=== PATIENT | female | born 1930 | race Caucasian/White ===

== ENCOUNTER 2017-01-05 10:30 | Emergency (ER) | payer MEDICARE ==
[2017-01-05 11:02] LABS: CHLORIDE,CL 106 mEq/L (98-106); SODIUM,NA 141 mEq/L (136-145)
--- NOTE | 2017-01-05 11:55 | EDM.PDOC ---
ED HPI GENERAL MEDICAL PROBLEM - General Chief Complaint: General Stated Complaint: "she is not herself" Time Seen by Provider: 01/05/17 11:15 Source of Information: Reports: Family History Limitations: Reports: Altered Mental Status - History of Present Illness INITIAL COMMENTS - FREE TEXT/NARRATIVE: Pt was brought here by EMS when was concerned that she wouldn't wake up lie she normally does. SHe does have severe Alzheimer and he cares for her. He does have difficulty getting morning meds into her but the evening ones are better but will still find that she spits them out at times. She doesn't answer anything anymore and he doesn't think she nows him. The residential plan is to fly to [place] January 17 where her daughter lives and will put her into a skilled nursing as it is getting difficult for him to care for her by himself. This morning when she didn't get up like normal she was having episodes of gagging that was not normal for her. He had given her a tramadol last night as she was showing signs of her back hurting. That was the first one that she had taken in over 2 weeks. She tends to sleep up to 16 hours a day. - Related Data Allergies Allergy/AdvReac Type Severity Reaction Status Date / Time Penicillins Allergy Cannot Verified 01/05/17 10:42 Remember Home Meds: Home Meds Levothyroxine Sodium [Levo-T] 50 mcg PO BEDTIME 01/05/17 [History] Lisinopril [Lisinopril] 2.5 mg PO BEDTIME 01/05/17 [History] Memantine HCl [Namenda Xr] 28 mg PO DAILY 01/05/17 [History] Pantoprazole Sodium [Pantoprazole Sodium] 40 mg PO DAILY 01/05/17 [History] traMADol HCl [Ultram] 50 mg PO Q12H PRN 01/05/17 [History] Past Medical History Cardiovascular History: Reports: Hypertension Gastrointestinal History: Reports: GERD Musculoskeletal History: Reports: Back Pain, Chronic, Osteoarthritis, Osteoporosis Psychiatric History: Reports: Dementia Endocrine/Metabolic History: Reports: Hypothyroidism - Past Surgical History GI Surgical History: Reports: Cholecystectomy Social & Family History - Tobacco Use Smoking Status *Q: Never Smoker - Recreational Drug Use Recreational Drug Use: No - Living Situation & Occupation Living situation: Reports: , with Spouse Occupation: Retired ED ROS GENERAL - Review of Systems Review Of Systems: See Below Constitutional: Denies: Fever, Chills HEENT: Reports: No Symptoms Respiratory: Reports: No Symptoms Cardiovascular: Reports: No Symptoms GI/Abdominal: Reports: Other (gagging) : Reports: No Symptoms Musculoskeletal: Reports: No Symptoms Skin: Reports: No Symptoms Neurological: Reports: Confusion ED EXAM, GENERAL - Physical Exam Exam: See Below Exam Limited By: No Limitations General Appearance: Alert, Other (does not answer any questions. Will smile at questions.) Ears: Normal External Exam, Normal Canal, Normal TMs Nose: Normal Inspection Throat/Mouth: Normal Inspection, Normal Oropharynx Head: Atraumatic Neck: Normal Inspection, Supple Respiratory/Chest: No Respiratory Distress, Lungs Clear, Normal Breath Sounds Cardiovascular: Regular Rate, Rhythm, No Edema GI/Abdominal: Normal Bowel Sounds, Soft, Non-Tender, No Organomegaly Extremities: Normal Inspection, No Pedal Edema Neurological: Alert, Other (no verbal response) Skin Exam: Warm, Dry Course - Vital Signs Last Recorded V/S: Last Vital Signs Temp 96.1 F 01/05/17 10:31 Pulse 68 01/05/17 10:31 Resp 20 01/05/17 10:31 BP 178/79 H 01/05/17 10:31 Pulse Ox 95 01/05/17 10:31 - Orders/Labs/Meds Orders: Active Orders 24 hr Category Date Time Status Chest 1V Frontal [CR] Stat Exams 01/05/17 10:38 Ordered Labs: Laboratory Tests 01/05/17 01/05/17 01/05/17 Range/Units 10:49 10:49 11:20 WBC 3.5 L (5.0-10.0) 10^3/uL RBC 3.49 L (4.00-5.50) 10^6/uL Hgb 11.6 L (12.0-16.0) g/dL Hct 34.0 L (37.0-47.0) % MCV 97.4 H (82.0-94.0) fL MCH 33.2 H (27.0-32.0) pg MCHC 34.1 (33.0-38.0) g/dL RDW Coeff of [place] 12.3 (11.0-15.0) % Plt Count 172 (150-400) 10^3/uL Neut % (Auto) 64.9 (35-85) % Lymph % (Auto) 27.2 (10-55) % [place] % (Auto) 6.2 (0-16) % Eos % (Auto) 1.1 (0-5) % Baso % (Auto) 0.6 (0-3) % Neut # (Auto) 2.29 (1.80-7.00) 10^3/uL Lymph # (Auto) 0.96 L (1.00-4.80) 10^3/uL [place] # (Auto) 0.22 (0.00-0.80) 10^3/uL Eos # (Auto) 0.04 (0.00-0.45) 10^3/uL Baso # (Auto) 0.02 10^3/uL Sodium 141 (136-145) mEq/L Potassium 3.8 (3.5-5.0) mEq/L Chloride 106 (98-106) mEq/L Carbon Dioxide 26 (21-32) mmol/L BUN 20 H (7-18) mg/dL Creatinine 0.8 (0.6-1.0) mg/dL Est Cr Clr Drug Dosing 36.55 mL/min Estimated GFR (MDRD) > 60 (>=60) mL/min Glucose 132 H D (75-99) mg/dL Calcium 9.1 (8.4-10.1) mg/dL Total Bilirubin 0.5 (0.0-1.0) mg/dL AST 16 (15-37) U/L ALT 21 (12-78) U/L Alkaline Phosphatase 59 (46-116) U/L C-Reactive Protein < 0.2 L (0.2-0.8) mg/dL Total Protein 6.2 L (6.4-8.2) g/dL Albumin 3.5 (3.4-5.0) g/dL Urine Color Yellow (YELLOW) Urine Appearance Clear (CLEAR) Urine pH 5.5 (4.5-8.0) Ur Specific [place] 1.025 H (1.003-1.020) Urine Protein Trace H (NEGATIVE) mg/dL Urine Glucose (UA) 100 H (NEGATIVE) mg/dL Urine Ketones 15 H (NEGATIVE) mg/dL Urine Occult Blood Trace-intact H (NEGATIVE) Urine Nitrite Negative (NEGATIVE) Urine Bilirubin Small H (NEGATIVE) Urine Urobilinogen 2.0 H (0.2-1.0) EU/dL Ur Leukocyte Esterase Negative (NEGATIVE) Urine RBC 0-5 (0-5) /HPF Urine WBC Not seen (0-5) /HPF Urine Mucus Occasional H (NOT SEEN) /HPF Departure - Departure Time of Disposition: 11:55 Disposition: Home, Self-Care 01 Condition: Poor Clinical Impression: Alzheimer's dementia without behavioral disturbance - Discharge Information Referrals: Tiffanie Hussein PA-C [Primary Care Provider] - Forms: ED Department Discharge Additional Instructions: stop the namenda and pantoprazole. Continue care as previously Rechec if any new concerns. - Problem List & Annotations (1) Alzheimer's dementia without behavioral disturbance SNOMED Code(s): 29518083 Code(s): G30.9 - ALZHEIMER'S DISEASE, UNSPECIFIED; F02.80 - DEMENTIA IN OTH DISEASES CLASSD ELSWHR W/O BEHAVRL DISTURB Status: Acute Priority: High Current Visit: Yes Qualifiers: Alzheimer's disease onset: late-onset Qualified Code(s): G30.1 - Alzheimer' s disease with late onset; F02.80 - Dementia in other diseases classified elsewhere without behavioral disturbance; F02.80 - Dementia in other diseases classified elsewhere without behavioral disturbance; F02.80 - Dementia in other diseases classified elsewhere without behavioral disturbance - Problem List Review Problem List Initiated/Reviewed/Updated: Yes - My Orders Last 24 Hours: My Active Orders 01/05/17 10:38 Chest 1V Frontal [CR] Stat - Assessment/Plan Last 24 Hours: My Active Orders 01/05/17 10:38 Chest 1V Frontal [CR] Stat
== END 2017-01-05 12:02 | disposition home or self-care (01) ==
LOC: CC.ED 10:30
DX: G30.9 Alzheimer's disease, unspecified (principal); F02.80 Dementia in other diseases classified elsewhere, unspecified severity, without behavioral disturbance, psychotic disturbance, mood disturbance, and anxiety; I10 Essential (primary) hypertension; K21.9 Gastro-esophageal reflux disease without esophagitis; E03.9 Hypothyroidism, unspecified; Z79.899 Other long term (current) drug therapy; Z88.0 Allergy status to penicillin
CPT/HCPCS: 36415; 51701; 71010; 80053; 81001; 85025; 86140; 93005; 93010; 99284

== ENCOUNTER 2017-01-15 15:40 | Inpatient (IN) | payer MEDICARE ==
[2017-01-15] MEDS ORDERED: Ondansetron 4 MG/2 ML SDV IVPUSH STA (15:55)
[2017-01-15] MEDS ORDERED: Morphine 2 MG/ML Syringe IVPUSH ONE (15:55)
[2017-01-15] MEDS ORDERED: Diphtheria,Pertussis(Acell),Tetanus Vaccine 0.5 ML Syringe IM ONE (15:55)
[2017-01-15] MEDS ORDERED: Sodium Chloride 0.9% 500 ML IV SCH (16:00)
--- NOTE | 2017-01-15 16:01 | EDM.PDOC ---
ED HPI GENERAL MEDICAL PROBLEM - General Chief Complaint: General Stated Complaint: LEFT HIP PAIN Time Seen by Provider: 01/15/17 15:53 Source of Information: Reports: Patient, EMS, Family, RN History Limitations: Reports: Altered Mental Status (Severe Dementia. Nonverbal. ) - History of Present Illness INITIAL COMMENTS - FREE TEXT/NARRATIVE: This patient is an 86 year old female that presents to the ER. Patient has severe dementia and is nonverbal. The patient is accompanied by her . The reports that she was in bed and he usually helps her out of bed. He reports that today she tried getting up out of bed on her own and fell. He did not see her fall, but did hear her. He reports that their son came over and helped him put her back in bed. He reports that she has not been able to get out of bed all day. He reports that she has not urinated that much today if at all. He reports that they are scheduled to fly to [place] on January [address] her in [facility]. He reports the patient is acting how she normally acts mentally and neurologically. Onset: Today Onset Date: 01/15/17 Onset Time: 07:30 Location: Reports: Upper Extremity, Left, Lower Extremity, Left Severity: Moderate Improves with: Reports: Immobilization Worsens with: Reports: Movement Associated Symptoms: Reports: Other (decreased urine today). Denies: Confusion , Chest Pain, Cough, cough w sputum, Diaphoresis, Fever/Chills, Headaches, Loss of Appetite, Malaise, Nausea/Vomiting, Rash, Seizure, Shortness of Breath, Syncope, Weakness - Related Data Allergies Allergy/AdvReac Type Severity Reaction Status Date / Time Penicillins Allergy Cannot Verified 01/05/17 10:42 Remember Home Meds: Home Meds Levothyroxine Sodium [Levo-T] 50 mcg PO BEDTIME 01/05/17 [History] Lisinopril [Lisinopril] 2.5 mg PO BEDTIME 01/05/17 [History] Memantine HCl [Namenda Xr] 28 mg PO DAILY 01/05/17 [History] Pantoprazole Sodium [Pantoprazole Sodium] 40 mg PO DAILY 01/05/17 [History] traMADol HCl [Ultram] 50 mg PO Q12H PRN 01/05/17 [History] Past Medical History Cardiovascular History: Reports: Hypertension Gastrointestinal History: Reports: GERD Musculoskeletal History: Reports: Back Pain, Chronic, Osteoarthritis, Osteoporosis Psychiatric History: Reports: Dementia Endocrine/Metabolic History: Reports: Hypothyroidism - Past Surgical History GI Surgical History: Reports: Cholecystectomy Social & Family History - Tobacco Use Smoking Status *Q: Never Smoker - Recreational Drug Use Recreational Drug Use: No - Living Situation & Occupation Living situation: Reports: , with Spouse Occupation: Retired ED ROS GENERAL - Review of Systems Review Of Systems: See Below Constitutional: Reports: No Symptoms HEENT: Reports: No Symptoms Respiratory: Reports: No Symptoms Cardiovascular: Reports: No Symptoms Endocrine: Reports: No Symptoms GI/Abdominal: Reports: No Symptoms : Reports: Other (decreased urination today) Musculoskeletal: Reports: Joint Pain (left hip pain. ) Skin: Reports: Wound (abrasion left elbow. ) Neurological: Reports: No Symptoms Psychiatric: Reports: No Symptoms Hematologic/Lymphatic: Reports: No Symptoms Immunologic: Reports: No Symptoms ED EXAM, GENERAL - Physical Exam Exam: See Below Exam Limited By: Altered Mental Status (Chronic Severe dementia. Nonverbal. Chronic no changes.) General Appearance: WD/WN, No Apparent Distress Eye Exam: Bilateral Eye: PERRL Ears: Normal External Exam, Normal Canal, Hearing Grossly Normal (follows me when I talk to her with eyes. ), Normal TMs Ear Exam: Bilateral Ear: Auricle Normal, Canal Normal, TM normal Nose: Normal Inspection, Normal Mucosa, No Blood Throat/Mouth: Normal Inspection, Normal Lips, Normal Gums, Normal Oropharynx, Normal Voice, No Airway Compromise Head: Atraumatic, Normocephalic Neck: Normal Inspection, Supple, Non-Tender, Full Range of Motion Respiratory/Chest: No Respiratory Distress, Lungs Clear, Normal Breath Sounds, No Accessory Muscle Use, Chest Non-Tender Cardiovascular: Normal Peripheral Pulses, Regular Rate, Rhythm, No Edema, No Gallop, No JVD, No Rub, Systolic Murmur (Grade 3. ) Peripheral Pulses: 2+: Radial (L), Radial (R), Posterior Tibial (L), Posterior Tibial (R), Dorsalis Pedis (L), Dorsalis Pedis (R) GI/Abdominal: Normal Bowel Sounds, Soft, Non-Tender, No Organomegaly, No Distention, No Abnormal Bruit, No Mass, Pelvis Stable (Female) Exam: Deferred Rectal (Female) Exam: Deferred Back Exam: Normal Inspection, Full Range of Motion. No: CVA Tenderness (L), CVA Tenderness (R), Decreased Range of Motion, Muscle Spasm, Paraspinal Tenderness, Vertebral Tenderness Extremities: No Pedal Edema, Normal Capillary Refill, Limited Range of Motion ( Left hip. ), Other (Left hip pain, tenderness. Decreased ROM due to pain. Obvious deformity with left lower extremity shortening and mild external rotation. Pulses +2, cap refill <2 sec. Sensation intact. Patient does have grimace with palpation and ROM. ) Neurological: Alert Psychiatric: Normal Mood, Flat Affect Skin Exam: Warm, Dry, Normal Color, No Rash, Other (skin tear left elbow. ) Lymphatic: No Adenopathy Course - Vital Signs Last Recorded V/S: Last Vital Signs Temp 98.1 F 01/15/17 15:52 Pulse 95 01/15/17 15:52 Resp 18 01/15/17 15:52 BP 133/65 01/15/17 15:52 Pulse Ox 95 01/15/17 15:52 - Orders/Labs/Meds Orders: Active Orders 24 hr Category Date Time Status Insert Urinary Catheter [OM.PC] Q24H Care 01/15/17 16:00 Ordered Urinary Catheter Assessment [RC] ASDIRECTED Care 01/15/17 15:55 Active Vaccines to be Administered [RC] PER UNIT ROUTINE Care 01/15/17 15:55 Active Chest 1V Frontal [CR] Stat Exams 01/15/17 15:53 Taken Head wo Cont [CT] Stat Exams 01/15/17 15:53 Taken Hip Min 2V or 3V w Pelvis Lt [CR] Stat Exams 01/15/17 15:53 Taken CULTURE URINE [RM] Stat Lab 01/15/17 16:57 Received Sodium Chloride 0.9% [Normal Saline] 500 ml Med 01/15/17 16:00 Active IV .BOLUS Medication Orders Sodium Chloride (Normal Saline) 500 mls @ 250 mls/hr IV .BOLUS AILYN Last Admin: 01/15/17 16:29 Dose: 250 mls/hr Labs: Laboratory Tests 01/15/17 01/15/17 01/15/17 Range/Units 16:25 16:25 16:25 WBC 11.0 H (5.0-10.0) 10^3/uL RBC 3.28 L (4.00-5.50) 10^6/uL Hgb 10.9 L (12.0-16.0) g/dL Hct 32.2 L (37.0-47.0) % MCV 98.2 H (82.0-94.0) fL MCH 33.2 H (27.0-32.0) pg MCHC 33.9 (33.0-38.0) g/dL RDW Coeff of [place]on 12.5 (11.0-15.0) % Plt Count 185 (150-400) 10^3/uL Add Manual Diff Yes Neutrophils % (Manual) 92 H (35-85) % Band Neutrophils % 2 (0-5) % Lymphocytes % (Manual) 3 L (21-55) % Monocytes % (Manual) 3 (2-12) % Absolute Neutrophils 10.34 H (1.80-7.00) 10^3/uL Lymphocytes # (Manual) 0.33 L (1.00-4.80) 10^3/uL Monocytes # (Manual) 0.33 (0.00-0.80) 10^3/uL PT 11.0 (9.7-12.3) SEC INR 1.02 (0.92-1.18) Sodium 141 (136-145) mEq/L Potassium 3.8 (3.5-5.0) mEq/L Chloride 107 H (98-106) mEq/L Carbon Dioxide 26 (21-32) mmol/L BUN 27 H (7-18) mg/dL Creatinine 0.9 (0.6-1.0) mg/dL Est Cr Clr Drug Dosing 28.77 mL/min Estimated GFR (MDRD) 59 L (>=60) mL/min Glucose 149 H (75-99) mg/dL Calcium 9.3 (8.4-10.1) mg/dL Total Bilirubin 0.7 (0.0-1.0) mg/dL AST 15 (15-37) U/L ALT 18 (12-78) U/L Alkaline Phosphatase 61 (46-116) U/L Total Protein 6.1 L (6.4-8.2) g/dL Albumin 3.5 (3.4-5.0) g/dL Urine Color (YELLOW) Urine Appearance (CLEAR) Urine pH (4.5-8.0) Ur Specific [place] (1.003-1.020) Urine Protein (NEGATIVE) mg/dL Urine Glucose (UA) (NEGATIVE) mg/dL Urine Ketones (NEGATIVE) mg/dL Urine Occult Blood (NEGATIVE) Urine Nitrite (NEGATIVE) Urine Bilirubin (NEGATIVE) Urine Urobilinogen (0.2-1.0) EU/dL Ur Leukocyte Esterase (NEGATIVE) Urine RBC (0-5) /HPF Urine WBC (0-5) /HPF Ur Squamous Epith Cells (NOT SEEN) /HPF Urine Bacteria (NOT SEEN) /HPF Urinalysis Comment 01/15/17 Range/Units 16:57 WBC (5.0-10.0) 10^3/uL RBC (4.00-5.50) 10^6/uL Hgb (12.0-16.0) g/dL Hct (37.0-47.0) % MCV (82.0-94.0) fL MCH (27.0-32.0) pg MCHC (33.0-38.0) g/dL RDW Coeff of [place] (11.0-15.0) % Plt Count (150-400) 10^3/uL Add Manual Diff Neutrophils % (Manual) (35-85) % Band Neutrophils % (0-5) % Lymphocytes % (Manual) (21-55) % Monocytes % (Manual) (2-12) % Absolute Neutrophils (1.80-7.00) 10^3/uL Lymphocytes # (Manual) (1.00-4.80) 10^3/uL Monocytes # (Manual) (0.00-0.80) 10^3/uL PT (9.7-12.3) SEC INR (0.92-1.18) Sodium (136-145) mEq/L Potassium (3.5-5.0) mEq/L Chloride (98-106) mEq/L Carbon Dioxide (21-32) mmol/L BUN (7-18) mg/dL Creatinine (0.6-1.0) mg/dL Est Cr Clr Drug Dosing mL/min Estimated GFR (MDRD) (>=60) mL/min Glucose (75-99) mg/dL Calcium (8.4-10.1) mg/dL Total Bilirubin (0.0-1.0) mg/dL AST (15-37) U/L ALT (12-78) U/L Alkaline Phosphatase (46-116) U/L Total Protein (6.4-8.2) g/dL Albumin (3.4-5.0) g/dL Urine Color Yellow (YELLOW) Urine Appearance Slightly cloudy (CLEAR) Urine pH 6.5 (4.5-8.0) Ur Specific [place] 1.025 H (1.003-1.020) Urine Protein Trace H (NEGATIVE) mg/dL Urine Glucose (UA) Negative (NEGATIVE) mg/dL Urine Ketones 40 H (NEGATIVE) mg/dL Urine Occult Blood Trace-intact H (NEGATIVE) Urine Nitrite Positive H (NEGATIVE) Urine Bilirubin Negative (NEGATIVE) Urine Urobilinogen 1.0 (0.2-1.0) EU/dL Ur Leukocyte Esterase Negative (NEGATIVE) Urine RBC 0-5 (0-5) /HPF Urine WBC 5-10 H (0-5) /HPF Ur Squamous Epith Cells Occasional H (NOT SEEN) /HPF Urine Bacteria Many H (NOT SEEN) /HPF Urinalysis Comment Meds: Medications Generic Name Dose Route Start Last Admin Trade Name Freq PRN Reason Stop Dose Admin Sodium Chloride 500 mls @ 250 mls/hr 01/15/17 16:00 01/15/17 16:29 Normal Saline IV 250 mls/hr .BOLUS AILYN Administration Discontinued Medications Generic Name Dose Route Start Last Admin Trade Name Jaydenq PRN Reason Stop Dose Admin Ceftriaxone Sodium 1 gm 01/15/17 18:37 Rocephin IVPUSH 01/15/17 18:38 ONETIME ONE Diphtheria/Tetanus/Acell Pertussis 0.5 ml 01/15/17 15:55 01/15/17 16:27 Adacel IM 01/15/17 15:56 0.5 ml .ONCE ONE Administration Morphine Sulfate 2 mg 01/15/17 15:55 01/15/17 16:28 Morphine IVPUSH 01/15/17 15:56 2 mg ONETIME ONE Administration Ondansetron HCl 4 mg 01/15/17 15:55 01/15/17 16:29 Zofran IVPUSH 01/15/17 15:56 4 mg NOW STA Administration - Radiology Interpretation Free Text/Narrative:: Discussed with radiologist about all images. CT Head: No bleed, no acute process. CXR: no pulmonary edema, no cardiomegaly, no infiltrates. Left hip: Left hip fx. CT Results Date: 01/15/17 CT Results Time: 16:40 - Re-Assessments/Exams Free Text/Narrative Re-Assessment/Exam: 01/15/17 17:17 I have spoken to the about the patient hip fracture. At this point he does not know if he wants her transferred or surgery. I have called [facility] and asked for orthopedic to look at her image and call me to discuss what intervention if any he would recommend. After I hear from him, then will talk to the again and hopefully he will have an answer at this point. After the fluids have been running, the has now made the decision that he does not want her to have fluids. I did also explain she has a UTI, he does not want any antibiotics. I have explained that not having UTI abx treatment may result in . He states "she has been very weak, she has dementia, and she is 86 years old, its just time to let her go." At this time I will just hold treatment. Her daughter is BRENT, who is in [place]. Once I hear from orthopedic, I will then call the daughter. 01/15/17 17:25 [facility] called. Orthopedic is in surgery. It will be over an hour. I will have radiology push images to [facility], then I will call there. 01/15/17 17:39 I have called and spoke to orthopedic at [facility], he will view image and call me back. 01/15/17 18:10 I have spoken to orthopedic Dr. Howie Avila. He reports that he would operate on this by placing a nail to help keep fracture stable. He said to help control pain. He did say he would not operate unless her UTI was treated due to going into surgery. I then spoke to Han the patients again. He does not want any treatments or surgery. I have now called and spoke to the POA. She is the daughter of the patient. Viviana Jovel. I have explained everything including risk verse benefits of surgery and treatment of UTI. She said she needs to think on it tonight before making a decision. She said at this point, do no treatment other than pain medication is okay if we feel she is in pain. I will admit patient and have her PCP see her tomorrow and contact the daughter [phone]. 01/15/17 18:35 Daughter Viviana has called me back. She wants the UTI treated. She also has more questions related to the surgery. I did now call Dr. Denise, he is going to call the daughter and talk to her about the surgery and call me back. 01/15/17 18:57 I spoke to surgeon again. He spoke with daughter. He said he thinks the daughter is leaning towards surgery, but wants to talk to a few more family members. The daughter will call me back when she decides. I will hold off on admission for a little while and wait for a decision from daughter. If I do not hear from her tonight, we will call her back. 01/15/17 20:24 I called and spoke to Viviana again. She reports she is struggling with a decision because patient does not want surgery done for her and the living will says no minor or major surgeries. She said that she will take the night to make a decision. She will touch base with PCP in the morning about decision for surgery. She does want UTI treated and pain medication as needed IV. But, does not want other treatment at this time. We will keep ward in place. I will admit patient. Departure - Departure Time of Disposition: 20:26 Disposition: Admitted As Inpatient 64 Condition: Fair Clinical Impression: UTI, Urinary tract infectious disease Closed left hip fracture Qualifiers: Encounter type: initial encounter Qualified Code(s): S72.002A - Fracture of unspecified part of neck of left femur, initial encounter for closed fracture - Discharge Information Referrals: Provider,Unknown [Primary Care Provider] - Forms: ED Department Discharge - My Orders Last 24 Hours: My Active Orders 01/15/17 15:53 Chest 1V Frontal [CR] Stat Head wo Cont [CT] Stat Hip Min 2V or 3V w Pelvis Lt [CR] Stat 01/15/17 15:55 Urinary Catheter Assessment [RC] ASDIRECTED Vaccines to be Administered [RC] PER UNIT ROUTINE 01/15/17 16:00 Insert Urinary Catheter [OM.PC] Q24H Sodium Chloride 0.9% [Normal Saline] 500 ml IV .BOLUS 01/15/17 16:57 CULTURE URINE [RM] Stat - Assessment/Plan Last 24 Hours: My Active Orders 01/15/17 15:53 Chest 1V Frontal [CR] Stat Head wo Cont [CT] Stat Hip Min 2V or 3V w Pelvis Lt [CR] Stat 01/15/17 15:55 Urinary Catheter Assessment [RC] ASDIRECTED Vaccines to be Administered [RC] PER UNIT ROUTINE 01/15/17 16:00 Insert Urinary Catheter [OM.PC] Q24H Sodium Chloride 0.9% [Normal Saline] 500 ml IV .BOLUS 01/15/17 16:57 CULTURE URINE [RM] Stat Plan: PLEASE SEE RN NOTE FOR PFSH. PLEASE USE ER H&P FOR ADMIT H&P.
[2017-01-15] MEDS ORDERED: cefTRIAXone 1 GM Vial IVPUSH ONE (18:37)
[2017-01-15] MEDS ORDERED: Ondansetron 4 MG/2 ML SDV IV PRN (20:48)
[2017-01-15] MEDS: HYDROmorphone 1 MG/ML Syringe IVPUSH PRN (23:55)
[2017-01-16] MEDS ORDERED: cefTRIAXone 2 GM Vial IVPUSH ONE (08:23)
--- NOTE | 2017-01-16 09:02 | PCM.DCSUM1 ---
Discharge Summary - Hospital Course HPI Initial Comments: Patient is an 86 year old female with a past medical history of severe dementia (nonverbal), hypertension, hypothyroidism, hyperlipidemia, GERD, osteoarthritis , osteoporosis, and scoliosis, who presented to the ER yesterday 01/15/2017 after a fall at home. The reports that she does not typically get out of bed and ambulate on her own, but sometime during the night she got out of bed on her own and ambulated to the bathroom. He reports that before he was able to get in to the bathroom to assist her, she fell to the floor. He did not witness the fall, but did hear it. He assisted her back to bed after the fall and throughout the day she was unable to get up and was not urinating, so he brought her to the ER in the evening. He does report that she has been more weak the past few weeks, but other than that she has been at her baseline neurologically. She was scheduled to fly to [place] on January 17, where she was going to be admitted to a intermediate. has been caring for her at home up until this point. He does report that prior to this, she was able to ambulate with a walker and assistance for short distances. At the time of ER presentation, patient grimaced and reached for left hip with movement. Hip/pelvis Xray shows an angulated intertrochanteric fracture of the left hip. Head CT negative. UA showed UTI. In the ER patient's and daughter Viviana (POA via phone) were unsure whether to go ahead with surgery and treatment of her UTI. Daughter eventually decided to treat the UTI and wait until today (01/16/2017) to decide whether to go forward with surgery. Patient was given 2 IV doses of Rocephin, yesterday and today. After speaking with daughter Viviana (POBan) and Han this morning, it was decided to go ahead with surgery. Case was discussed via [facility] with Dr. Pritchett (orthopedics) and Dr. Mosquera ( hospitalist). Patient was accepted for transfer and will be transported via [facility] ambulance services to [facility] for further medical clearance and surgery. - Discharge Data Discharge Date: 01/16/17 Discharge Disposition: DC/Tfer to Acute Hospital 02 Condition: Poor - Discharge Diagnosis/Problem(s) (1) Closed left hip fracture SNOMED Code(s): 133597377 ICD Code: S72.002A - FRACTURE OF UNSP PART OF NECK OF LEFT FEMUR, INIT Status: Acute Priority: High Current Visit: Yes Qualifiers: Encounter type: initial encounter Qualified Code(s): S72.002A - Fracture of unspecified part of neck of left femur, initial encounter for closed fracture (2) UTI, Urinary tract infectious disease SNOMED Code(s): 65570361 ICD Code: N39.0 - URINARY TRACT INFECTION, SITE NOT SPECIFIED Status: Acute Current Visit: Yes (3) Alzheimer's dementia without behavioral disturbance SNOMED Code(s): 41295894 ICD Code: G30.9 - ALZHEIMER'S DISEASE, UNSPECIFIED; F02.80 - DEMENTIA IN OTH DISEASES CLASSD ELSWHR W/O BEHAVRL DISTURB Status: Acute Priority: High Current Visit: No Qualifiers: Alzheimer's disease onset: late-onset Qualified Code(s): G30.1 - Alzheimer' s disease with late onset; F02.80 - Dementia in other diseases classified elsewhere without behavioral disturbance; F02.80 - Dementia in other diseases classified elsewhere without behavioral disturbance; F02.80 - Dementia in other diseases classified elsewhere without behavioral disturbance (4) Fall as cause of accidental injury at home as place of occurrence SNOMED Code(s): 38543369 ICD Code: W19.XXXA - UNSPECIFIED FALL, INITIAL ENCOUNTER; Y92.009 - UNSP PLACE IN UNSP NON-INSTITUT (PRIVATE) RESIDENCE PLACE Status: Acute Current Visit: Yes Qualifiers: Encounter type: initial encounter Qualified Code(s): W19.XXXA - Unspecified fall, initial encounter; Y92.009 - Unspecified place in unspecified non-institutional (private) residence as the place of occurrence of the external cause; Y92.009 - Unspecified place in unspecified non-institutional ( private) residence as the place of occurrence of the external cause - Patient Instructions Activity: Bedrest - Discharge Plan Home Medications: Home Meds Levothyroxine Sodium [Levo-T] 50 mcg PO BEDTIME 01/05/17 [History] Lisinopril [Lisinopril] 2.5 mg PO BEDTIME 01/05/17 [History] Memantine HCl [Namenda Xr] 28 mg PO DAILY 01/05/17 [History] Pantoprazole Sodium [Pantoprazole Sodium] 40 mg PO DAILY 01/05/17 [History] traMADol HCl [Ultram] 50 mg PO Q12H PRN 01/05/17 [History] Forms: ED Department Discharge Referrals: Provider,Unknown [Ordering Only Provider] - - General Info Date of Service: 01/16/17 Admission Dx/Problem (Free Text: Closed Left Hip Fracture Fall UTI Dementia- Alzheimers Subjective Update: Patient unable to report pain. Appears comfortable when lying still in bed. Ward catheter in place and draining. History is limited due to underlying dementia. Spoke with son in law and . Spoke with daughter Viviana (POA via phone). Decision was made to proceed with surgery. Will transfer to [facility]. Functional Status: Reports: Pain Controlled, Tolerating Diet, Urinating (Ward catheter). Denies: Ambulating Numeric/FACES Score: 0 - Review of Systems General: Reports: Weakness. Denies: Fever, Chills HEENT: Reports: No Symptoms Pulmonary: Reports: No Symptoms Cardiovascular: Reports: No Symptoms Gastrointestinal: Reports: No Symptoms Genitourinary: Reports: Other (ward catheter in place) Musculoskeletal: Reports: Leg Pain (left lower extremity), Joint Swelling (left hip) Skin: Reports: No Symptoms Neurological: Reports: Confusion, Pre-Existing Deficit (alzhemiers dementia), Gait Disturbance, Other (unable to assess for N/T to affected extremity). Denies: Seizure, Syncope Psychiatric: Reports: Confusion. Denies: Agitation - Patient Data Vitals - Most Recent: Last Vital Signs Temp 96.9 F 01/16/17 08:00 Pulse 83 01/16/17 08:00 Resp 18 01/16/17 08:00 BP 124/35 L 01/16/17 08:00 Pulse Ox 99 01/16/17 08:00 Weight - Most Recent: 99 lb 1.6 oz I&O - Last 24 hours: Intake & Output 01/15/17 01/16/17 01/16/17 22:59 06:59 14:59 Output Total 200 Balance -200 Med Orders - Current: Current Medications Hydromorphone HCl (Dilaudid) 0.25 mg IVPUSH Q2H PRN PRN Reason: Pain (severe 7-10) Last Admin: 01/15/17 23:55 Dose: 0.25 mg Levothyroxine Sodium (Synthroid) 50 mcg PO BEDTIME AILYN Lisinopril (Prinivil) 2.5 mg PO BEDTIME AILYN Ondansetron HCl (Zofran) 4 mg IV Q6H PRN PRN Reason: Nausea/Vomiting Discontinued Medications Ceftriaxone Sodium (Rocephin) 1 gm IVPUSH ONETIME ONE Stop: 01/15/17 18:38 Last Admin: 01/15/17 20:27 Dose: 1 gm Ceftriaxone Sodium (Rocephin) 2 gm IVPUSH ONETIME ONE Stop: 01/16/17 08:24 Diphtheria/Tetanus/Acell Pertussis (Adacel) 0.5 ml IM .ONCE ONE Stop: 01/15/17 15:56 Last Admin: 01/15/17 16:27 Dose: 0.5 ml Sodium Chloride (Normal Saline) 500 mls @ 250 mls/hr IV .BOLUS AILYN Last Admin: 01/15/17 16:29 Dose: 250 mls/hr Morphine Sulfate (Morphine) 2 mg IVPUSH ONETIME ONE Stop: 01/15/17 15:56 Last Admin: 01/15/17 16:28 Dose: 2 mg Ondansetron HCl (Zofran) 4 mg IVPUSH NOW STA Stop: 01/15/17 15:56 Last Admin: 01/15/17 16:29 Dose: 4 mg - Exam Quality Assessment: Reports: Urine Catheter General: Reports: Alert, Mild Distress, Other (disoriented x4, unable to answer questions, nonverbal) HEENT: Reports: Pupils Equal, Pupils Reactive, EOMI, Mucous Membr. Moist/[place] Neck: Reports: Supple Lungs: Reports: Clear to Auscultation, Normal Respiratory Effort Cardiovascular: Reports: Regular Rate, Regular Rhythm, Murmurs GI/Abdominal Exam: Normal Bowel Sounds, Soft, Non-Tender, No Organomegaly, No Distention, No Abnormal Bruit, No Mass. No: Guarding, Rigid, Tender (Female) Exam: Deferred Rectal (Female) Exam: Deferred Back Exam: Reports: Decreased Range of Motion, Other (scoliosis) Extremities: Normal Capillary Refill, Joint Swelling, Leg Pain (left), Limited Range of Motion (to left hip), Other (LLE 2+ pedal pulse, no obvious deformity) . No: Increased Warmth, Redness Skin: Reports: Warm, Dry, Intact Neurological: Reports: Other (nonverbal, at baseline, alzheimers dementia). Denies: Normal Speech Psy/Mental Status: Reports: Alert. Denies: Agitated *Q Meaningful Use (DIS) - VTE *Q VTE Criteria *Q: VTE Anticoagulation Contraindications: Med/TX Not Indicated/Need - Stroke *Q Stroke Criteria *Q: - AMI *Q AMI Criteria *Q:
[2017-01-16] MEDS: HYDROmorphone 1 MG/ML Syringe IVPUSH PRN (09:15)
--- NOTE | 2017-01-16 10:09 | PN ---
DATE: 01/16/2017 Ron Lara came in with a hip fracture and UTI. I had a long discussion with Phuong Jovel, daughter of the patient, and they want her hip pins, so we will transfer to [place] and go from there. JUSTINO/ZEE /[id number]
--- NOTE | 2017-01-16 10:09 | PN ---
DATE: 01/16/2017 S: Ron Lara came in, fell, had a fractured left hip and also UTI. O: GENERAL: The patient was obviously very demented. NECK: Supple. CHEST: Clear. CARDIAC: Regular. Grade 2 systolic aortic murmur. ABDOMEN: Soft. EXTREMITIES: Not much deformity to the lower extremities. ASSESSMENT: LEFT HIP FRACTURE AND URINARY TRACT INFECTION. P: Continue present therapy. JUSTINO/ZEE /[id number]
[2017-01-16] MEDS ORDERED: Levothyroxine 50 MCG Tab PO SCH (20:00)
[2017-01-16] MEDS ORDERED: Lisinopril 5 MG Tab PO SCH (20:00)
== END 2017-01-16 11:00 | DRG 536 ==
LOC: CC.ED 15:40 → CC.MS 20:30 → UNDOADMIN 20:30 → CC.MS 20:48
PROVIDERS: ADMIT Nurse Practitioner; ATTEND General Practice
DX: S72.142A Displaced intertrochanteric fracture of left femur, initial encounter for closed fracture (principal); N39.0 Urinary tract infection, site not specified; W06.XXXA Fall from bed, initial encounter; Y92.003 Bedroom of unspecified non-institutional (private) residence as the place of occurrence of the external cause; F03.90 Unspecified dementia, unspecified severity, without behavioral disturbance, psychotic disturbance, mood disturbance, and anxiety; Y92.002 Bathroom of unspecified non-institutional (private) residence as the place of occurrence of the external cause; W19.XXXA Unspecified fall, initial encounter; K21.9 Gastro-esophageal reflux disease without esophagitis; I10 Essential (primary) hypertension; G89.29 Other chronic pain; M54.9 Dorsalgia, unspecified; M19.90 Unspecified osteoarthritis, unspecified site; Z23 Encounter for immunization; M81.0 Age-related osteoporosis without current pathological fracture; E03.9 Hypothyroidism, unspecified; Z88.0 Allergy status to penicillin; Z79.899 Other long term (current) drug therapy; E78.5 Hyperlipidemia, unspecified; G30.9 Alzheimer's disease, unspecified; F02.80 Dementia in other diseases classified elsewhere, unspecified severity, without behavioral disturbance, psychotic disturbance, mood disturbance, and anxiety
CPT/HCPCS: 71010; 73502; 70450; 90715; 96361; 96374; 96375; 99285; 51702; 90471; 85025; 85610; 81001; 36415; 80053; 87086; J0696; J2270; J7040; J2405; 87186; J1170